=== PATIENT | female | born 1990 | race Caucasian/White ===

== ENCOUNTER → 2024-12-09 | Outpatient (CLI) | payer MEDICAID, SELFPAY ==
--- NOTE | 2024-12-09 12:50 | XR_ITS ---
Examination: PA lateral chest 2 views TECHNIQUE: Upright PA lateral chest 2 views Exam date and time: December 09, 2024 at 1311 hours INDICATIONS: Shortness of breath 3 years FINDINGS: Normal heart size Lungs are clear. The osseous structures are intact IMPRESSION: No active disease
== END | disposition home or self-care (01) ==
PROVIDERS: PCP Internal Medicine
DX: R06.02 Shortness of breath (principal)
CPT/HCPCS: 71046

== ENCOUNTER → 2025-02-24 | Outpatient (CLI) | payer MEDICAID, SELFPAY ==
--- NOTE | 2025-02-24 15:00 | XR_ITS ---
Examination: Breast ultrasound, unilateral, left complete Date and time of exam: February 24, 2025 at 1453 hours INDICATIONS: Patient states lumps at the 11 2:00 position left breast note is beginning 3 weeks ago Technique: Real-time deal scale ultrasonographic imaging performed left breast including all 4 quadrants as well as nipple retroareolar and axillary region. Findings: No cystic or solid mass IMPRESSION: BI-RADS Category 1: Negative study If palpable abnormalities persist, consider diagnostic mammography follow-up
== END | disposition home or self-care (01) ==
PROVIDERS: PCP Physician Assistant; Referring Provider Physician Assistant; Visit Provider Physician Assistant
DX: N63.21 Unspecified lump in the left breast, upper outer quadrant (principal)
CPT/HCPCS: 76641

== ENCOUNTER → 2025-03-31 | Outpatient (CLI) | payer MEDICAID, SELFPAY ==
--- NOTE | 2025-03-31 | XR_ITS ---
Examination: Shoulder,left, 3 views Technique: Shoulder AP internal rotation, AP external rotation, Y view shoulder, 3 views Exam date and time :March 31, 2025 at 12:53 PM INDICATIONS: Intermittent shoulder pain beginning 2012. FINDINGS: Mild to moderate narrowing glenohumeral joint No shoulder fracture or dislocation. No calcific tendinitis IMPRESSION: Mild to moderate narrowing glenohumeral joint
== END | disposition home or self-care (01) ==
PROVIDERS: PCP Internal Medicine; Referring Provider Nurse Practitioner Family; Visit Provider Nurse Practitioner Family
DX: M25.812 Other specified joint disorders, left shoulder (principal)
CPT/HCPCS: 73030

== ENCOUNTER → 2025-05-04 | Outpatient (CLI) | payer MEDICAID, SELFPAY ==
--- NOTE | 2025-05-04 09:15 | XR_ITS ---
Examination: Diagnostic digital mammography, unilateral, left Computer aided detection 3-D breast Tomosynthesis, unilateral Date and time of exam: May 04, 2025, 0847 hours INDICATIONS: Lump lateral breast 2 years Technique: Nonmagnified MLO, CC views of the left breast have been obtained, reconstructed from 3-D Tomosynthesis images. R2 computer aided detection program utilized for evaluation of suspicious masses and/or abnormal calcifications. 3-D Tomosynthesis images obtained. Findings: The breast is heterogeneously dense, which may obscure small masses Mild focal asymmetry at the palpable marker site on the CC view and upper left breast on the MLO view Impression: BI-RADS category 3: Probably benign findings One additional 6 month left mammogram follow-up is needed
== END | disposition home or self-care (01) ==
LOC: CDIM 08:40
PROVIDERS: Referring Provider Physician Assistant; Visit Provider Physician Assistant
DX: R92.8 Other abnormal and inconclusive findings on diagnostic imaging of breast (principal)
CPT/HCPCS: 77061; 77065; G0279

== ENCOUNTER 2025-07-26 10:25 | Day surgery (SDC) | payer MEDICAID, SELFPAY ==
[2025-07-25 09:25] LABS: HCG Qualitative,Urine Negative
[2025-07-25 14:51] VITALS: BMI 39.9
[2025-07-26] VITALS (8 sets, daily range): BP systolic 109–140; BP diastolic 61–75; PULSE 65–78; RESP 14–18; TEMP 36.2–36.4; O2SAT 94–100; BMI 39.9
--- NOTE | 2025-07-26 10:52 | CHAP ---
Visited with patient and gave encouragement and prayer before patient's procedure.
[2025-07-26] MEDS: BENZOCAINE 20% (Hurricaine) SPRAY 1 DOSE TOP (13:50)
[2025-07-26] MEDS: RINGERS LACTATED 1000 ML 1,000 ML 20 ML IV (13:50)
--- NOTE | 2025-07-26 14:27 | SUR.PHASEII ---
pt received from OR in recovery bay 4. pt asleep but responds to voice, breathing unlabored on 2l nc. v/s stable. report received from Dr. Alba and Cesilia ZELAYA.
--- NOTE | 2025-07-26 15:00 | SUR.PHASEII ---
pt able to tolerate oral fluids without difficulty swallowing or vomiting.
--- NOTE | 2025-07-26 15:45 | SUR.PHASEII ---
pt awake and alert, breathing unlabored on room air. v/s stable. pt able to ambulate to wheelchair with steady gait. d/c instructions given with elis in room, all questions answered. pt d/c via wheelchair with all belongings.
== END 2025-07-26 15:45 | disposition home or self-care (01) ==
PROVIDERS: Anesthesiology; PCP Internal Medicine; Referring Provider Internal Medicine Gastroenterology; Visit Provider Internal Medicine Gastroenterology
PROC: 0DJD8ZZ Inspection of Lower Intestinal Tract, Via Natural or Artificial Opening Endoscopic (ICD-10-PCS; CPT 45378; principal; 2025-07-26 12:30)
PROC: (CPT 43239; 2025-07-26 12:30)
DX: K29.70 Gastritis, unspecified, without bleeding (principal); E66.01 Morbid (severe) obesity due to excess calories; I27.20 Pulmonary hypertension, unspecified; D64.9 Anemia, unspecified; Z68.41 Body mass index [BMI] 40.0-44.9, adult
CPT/HCPCS: 43239; 81025; A4649; J7120; A9270